=== PATIENT | female | born 1995 | race Caucasian/White ===

== ENCOUNTER 2022-03-26 21:39 | Emergency (ER) | payer MEDICAID ==
[2022-03-26] MEDS ORDERED: fentaNYL 100 MCG/2 ML SDV IVPUSH ONE (21:41)
[2022-03-26] MEDS ORDERED: Ketorolac 30 MG/ML SDV IVPUSH ONE (21:42)
[2022-03-26] MEDS ORDERED: Ondansetron 4 MG/2 ML SDV IVPUSH ONE (21:42)
[2022-03-26] MEDS ORDERED: Lactated Ringers 1,000 ML IV ONE (21:43)
[2022-03-26] MEDS ORDERED: Sodium Chloride 0.9% 10 ML Syringe FLUSH PRN ×2 (21:44→23:13)
[2022-03-26] MEDS ORDERED: fentaNYL 50 MCG/ML SDV IVPUSH ONE (22:05)
[2022-03-26 22:07] LABS: ESTIMATED GFR 104 mL/min (>60)
[2022-03-26] MEDS ORDERED: HYDROmorphone 0.5 MG/0.5 ML Syringe IVPUSH ONE (22:46)
[2022-03-26] MEDS ORDERED: Sodium Chloride 0.9% 50 ML IV ONE (23:13)
[2022-03-26] MEDS ORDERED: Iopamidol 612 MG/ML 100 ML Bottle IV PRN (23:13)
== END 2022-03-27 02:01 | disposition home or self-care (01) ==
LOC: JP.ED 21:39
DX: R10.31 Right lower quadrant pain (principal); N30.01 Acute cystitis with hematuria; L55.0 Sunburn of first degree; K59.00 Constipation, unspecified; Z91.048 Other nonmedicinal substance allergy status; Z88.1 Allergy status to other antibiotic agents; Z91.040 Latex allergy status; Z88.6 Allergy status to analgesic agent; Z91.011 Allergy to milk products; Z79.899 Other long term (current) drug therapy
CPT/HCPCS: 36415; 70450; 74177; 80053; 81001; 81025; 83690; 85025; 86140; 96361; 96374; 96375; 99284; J1170; J1885; J2405; J3010; J3490; J7120; Q9967